=== PATIENT | male | born 2000 | race African-American/Black ===

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

== ENCOUNTER 2024-01-20 03:09 | Emergency (ER) | payer MEDICAID, OTHER ==
[~2024-01-20] VITALS: Ht 182.9 cm; Wt 84.1 kg
[~2024-01-20 03:09] MED LIST changes: +IPRAHFA IH
[2024-01-20 03:11] VITALS: BP 132/75; PULSE 79; RESP 20; TEMP 98.4
[2024-01-20] MEDS ORDERED: METH-812 PO (04:27)
[2024-01-20] MEDS ORDERED: IBUP-1492 PO (04:27)
[2024-01-20] MEDS: KETOROLAC TROMETHAMINE 30 MG/ML VIAL IM ONE (04:34)
[2024-01-20] MEDS: METHOCARBAMOL 500 MG TABLET PO ONE (04:35)
== END 2024-01-20 04:52 | disposition home or self-care (01) ==
LOC: EMS 03:11
DX: M54.31 Sciatica, right side (principal); J45.909 Unspecified asthma, uncomplicated
CPT/HCPCS: 99283; 96372; J1885